=== PATIENT | male | born 1950 | race Caucasian/White ===

== ENCOUNTER 2020-08-14 09:43 | Outpatient (RCR) | payer MEDICARE, OTHER, SELFPAY ==
[2020-08-14] MEDS: COVID-19 VACC, MRNA(PFIZER)/PF 30 MCG/0.3 ML SYRINGE IM (07:42)
[2020-09-04] MEDS: COVID-19 VACC, MRNA(PFIZER)/PF 30 MCG/0.3 ML SYRINGE IM (07:37)
== END 2020-11-11 23:59 ==
LOC: IMMUN 09:43
PROVIDERS: PCP Family Medicine; Visit Provider Family Medicine
DX: Z23 Encounter for immunization (principal)
CPT/HCPCS: 0001A; 0002A; 91300

== ENCOUNTER 2024-11-04 17:28 | Emergency (ER) | payer MEDICARE, OTHER, SELFPAY ==
[2024-11-04 17:28] VITALS: BP 197/100; PULSE 70; RESP 18; TEMP 36.4; O2SAT 99; BMI 26.4
--- NOTE | 2024-11-04 17:40 | ED.VIS.FALL ---
HPI <CHADWICK Nye - Last Filed: 11/04/24 21:07> HPI - Fall History of Present Illness Chief Complaint: Fall Narrative Narrative: 74-year-old male slipped and fell this morning in his barn. He states he was running to fix a machine and slipped on a wet floor hitting his mid back on the ground. His head bumped the ground but he had no LOC. He states it knocked the wind out of him but he was able to get up and has been ambulatory and is taking Aleve for the pain. He has no pain in his chest or abdomen. No shortness of breath. No pain in his upper or lower extremities. No weakness or paresthesias. No blood thinners. No headache neck pain or nausea or vomiting. PFSH <CHADWICK Nye Last Filed: 11/04/24 21:07> PFS Medical History no medical history Home Medications ?Medication ?Instructions ?Recorded ?Last Taken ?Type hydrocodone-acetaminophen 5-325mg 1 tab PO Q6H PRN pain 3 days #12 11/04/24 Unknown Rx 5mg-325mg tabs Allergy/AdvReac Type Severity Reaction Status Date / Time No Known Allergies Allergy Verified 11/04/24 17:28 Social History Smoking Status: Never smoker ROS <CHADWICK Nye - Last Filed: 11/04/24 21:07> ROS ED ROS Narrative CVS: Negative for chest pain, syncope. Respiratory: Negative for shortness of breath. GI: Negative for nausea, vomiting. Neuro: Negative for headache, motor/sensory dysfunction. EXAM <CHADWICK Nye - Last Filed: 11/04/24 21:07> Physical Exam Narrative Exam Narrative: CONST: Patient sitting in no acute distress. EYES: Normal inspection. NECK: Normal inspection. RESP: No respiratory distress, CTAB. CVS: Regular rate and rhythm, no murmur, no gallop. Back: Normal inspection without external trauma. He has no reproducible tenderness over the spine or back but he has thoracic and lumbar pain with twisting motions or movement. SKIN: Color normal, no rash, warm, dry, intact. EXTREMITIES: Normal appearance, full range of motion upper and lower extremities, 5/5 strength, normal sensation, 2+ radial and PT pulses. NEURO: Alert and answering questions appropriately. PSYCH: Normal affect. Const Vital Signs: 11/04/24 17:28 11/04/24 17:38 11/04/24 18:38 Temperature 97.6 F L Temperature Source Oral Pulse Rate 70 87 Respiratory Rate 18 16 Respiratory Effort Normal Non-Labored Blood Pressure 197/100 H 188/84 H Blood Pressure Mean 132 118 Pulse Ox 99 98 Oxygen Delivery Method Room Air Room Air <Dr. Jhony Branch MD - Last Filed: 11/04/24 18:16> Physical Exam Const Vital Signs: 11/04/24 17:28 11/04/24 17:38 11/04/24 18:38 Temperature 97.6 F L Temperature Source Oral Pulse Rate 70 87 Respiratory Rate 18 16 Respiratory Effort Normal Non-Labored Blood Pressure 197/100 H 188/84 H Blood Pressure Mean 132 118 Pulse Ox 99 98 Oxygen Delivery Method Room Air Room Air MDM <CHADWICK Nye - Last Filed: 11/04/24 21:07> [facility] MDM Narrative Medical decision making narrative: History gathered from: Patient and spouse Differential includes back contusion versus fracture Patient had a mechanical fall injuring his back. He had a minor head injury but no LOC. No thinners. He is awake and alert. He has no external signs of trauma. He has no C-spine tenderness. I do not think he requires a scan of his head or neck. He has pain in the thoracic spine with movement although there is no reproducible pain to palpation over his spine or musculature. Upper and lower extremities are neurovascularly intact. X-rays of the thoracic lumbar spine were obtained. There is a subtle linear sclerosis at inferior L2 which could be fracture versus artifact. He is not tender over this area so it is more likely artifact. No other acute findings. He was treated with IM Toradol with improvement and was prescribed [place] as needed for home. Follow-up with PCP. I have personally performed a face to face assessment of the patient and have reviewed the JAMAL Note. I performed a substantive portion of the visit including all aspects of the following. 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 4:30 AM this morning he was running through his barn slipped and fell on the floor injuring his mid to lower back. No prior history of back surgery. No other complaints. No LOC. On no blood thinners.] Exam is [well-appearing 74-year-old male. Vital signs stable afebrile. H EENT exam pupils round react light. No signs of trauma to his face or scalp. No tenderness or hematoma. No laceration. C-spine trachea nontender tender. Back there is no reproducible back pain. There is no signs of trauma. There is no bruising or abrasion. Going down his thoracic and lumbar spines nontender. When he does movement such as standing straight up or sitting to standing he has some pain. There is no posterior rib or paravertebral soft tissue tenderness. Lungs clear to auscultation. Heart regular rhythm no murmur. Chest wall and ribs nontender. Abdomen soft nontender. Pelvic girdle intact. Moving all 4 extremities. Nontender no deformity. Normal strength and sensation. Standing without any difficulty. Neurologically he is awake and alert. Answering questions following commands.] Medical Decision Making [x-ray of his thoracic spine.] Other additions or changes: [None] Radiography Diagnostic Testing: Clinical Impression(s) from Imaging Studies Thoracic Spine X-Ray 11/04/24 17:50 IMPRESSION: 1. Subtle linear sclerosis at the inferior aspect of the L2 vertebral body, which could represent a minimally displaced fracture, though artifact could appear similar. No significant vertebral body height loss at any level. Correlate for tenderness on exam. 2. No evidence of a compression deformity involving the thoracic spine. 3. Moderate to severe multilevel degenerative changes Reading Location: [id number] Lumbar Spine X-Ray 11/04/24 18:08 IMPRESSION: 1. Subtle linear sclerosis at the inferior aspect of the L2 vertebral body, which could represent a minimally displaced fracture, though artifact could appear similar. No significant vertebral body height loss at any level. Correlate for tenderness on exam. 2. No evidence of a compression deformity involving the thoracic spine. 3. Moderate to severe multilevel degenerative changes Reading Location: [facility] <Dr. Jhony Branch MD - Last Filed: 11/04/24 18:16> [facility] MDM Narrative Medical decision making narrative: I have personally performed a face to face assessment of the patient and have reviewed the JAMAL Note. I performed a substantive portion of the visit including all aspects of the following. 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 4:30 AM this morning he was running through his barn slipped and fell on the floor injuring his mid to lower back. No prior history of back surgery. No other complaints. No LOC. On no blood thinners.] Exam is [well-appearing 74-year-old male. Vital signs stable afebrile. H EENT exam pupils round react light. No signs of trauma to his face or scalp. No tenderness or hematoma. No laceration. C-spine trachea nontender tender. Back there is no reproducible back pain. There is no signs of trauma. There is no bruising or abrasion. Going down his thoracic and lumbar spines nontender. When he does movement such as standing straight up or sitting to standing he has some pain. There is no posterior rib or paravertebral soft tissue tenderness. Lungs clear to auscultation. Heart regular rhythm no murmur. Chest wall and ribs nontender. Abdomen soft nontender. Pelvic girdle intact. Moving all 4 extremities. Nontender no deformity. Normal strength and sensation. Standing without any difficulty. Neurologically he is awake and alert. Answering questions following commands.] Medical Decision Making [x-ray of his thoracic spine.] Other additions or changes: [None] History & Record Review Discussion w/independent historian: Patient Radiography Diagnostic Testing: Clinical Impression(s) from Imaging Studies Thoracic Spine X-Ray 11/04/24 17:50 IMPRESSION: 1. Subtle linear sclerosis at the inferior aspect of the L2 vertebral body, which could represent a minimally displaced fracture, though artifact could appear similar. No significant vertebral body height loss at any level. Correlate for tenderness on exam. 2. No evidence of a compression deformity involving the thoracic spine. 3. Moderate to severe multilevel degenerative changes Reading Location: [id number] Lumbar Spine X-Ray 11/04/24 18:08 IMPRESSION: 1. Subtle linear sclerosis at the inferior aspect of the L2 vertebral body, which could represent a minimally displaced fracture, though artifact could appear similar. No significant vertebral body height loss at any level. Correlate for tenderness on exam. 2. No evidence of a compression deformity involving the thoracic spine. 3. Moderate to severe multilevel degenerative changes Reading Location: [facility] Thoracic spine x-rays, 3 views, interpreted by myself shows arthritic changes but no acute compression fracture or other acute abnormality seen. Lumbar spine x-rays 3 views again interpreted by myself again shows chronic arthritic changes but no acute fracture no obvious compression fracture. Discharge Plan Triage Chief Complaint: Fall ED Midlevel Provider: Mandy Batista ED Provider: Jhony Branch Dx/Rx/DC Orders Clinical Impression: Contusion of back wall of thorax, Fall Instructions: Bruises (Contusions) Prescriptions: New hydrocodone-acetaminophen 5-325 mg tablet 1 tab PO Q6H PRN (Reason: pain) 3 Days Qty: 12 0RF Primary Care Provider: Rigo Ceballos Referrals: Rigo Ceballos, [Primary Care Provider] - 1 Week if not improving Activity Restrictions/Additional Instructions: Your x-ray shows no sign of broken bones. I will treat this as a backup contusion with ice and ibuprofen. I also prescribed [place]. Please be aware this medication can cause nausea, sedation, and constipation. I recommend a stool softener or MiraLAX while taking it. Print Language: Swiss Disposition Disposition: Home, Self Care Discharge Date/Time: 11/04/24 18:54
[2024-11-04] MEDS: Ketorolac 15 MG/ML Vial IM (17:45)
--- NOTE | 2024-11-04 17:50 | RAD_ITS ---
PROCEDURE: THORACIC SPINE 3 VIEWS; LUMBAR SPINE 2 OR 3 VIEWS 11/04/2024 REASON FOR EXAM: PAIN TECHNIQUE: Three views of the thoracic spine; three views of the lumbar spine COMPARISON: None FINDINGS: Thoracic and lumbar vertebral body heights and alignment are maintained. There is subtle linear sclerosis along the inferior aspect of the L2 vertebral body on the lateral view. Multilevel endplate osteophyte formation with disc space narrowing and facet arthrosis throughout. Visualized lungs are clear. Aortic atherosclerosis. Bilateral hip arthroplasties. Degenerative changes of the sacroiliac joints. RAD/Thoracic Spine 3 Views IMPRESSION: 1. Subtle linear sclerosis at the inferior aspect of the L2 vertebral body, wh ich could represent a minimally displaced fracture, though artifact could appear similar. No significant vertebral body height loss at any level. Correlate for tenderness on exam. 2. No evidence of a compression deformity involving the thoracic spine. 3. Moderate to severe multilevel degenerative changes Reading Location: [facility]
--- NOTE | 2024-11-04 18:08 | RAD_ITS ---
PROCEDURE: THORACIC SPINE 3 VIEWS; LUMBAR SPINE 2 OR 3 VIEWS 11/04/2024 REASON FOR EXAM: PAIN TECHNIQUE: Three views of the thoracic spine; three views of the lumbar spine COMPARISON: None FINDINGS: Thoracic and lumbar vertebral body heights and alignment are maintained. There is subtle linear sclerosis along the inferior aspect of the L2 vertebral body on the lateral view. Multilevel endplate osteophyte formation with disc space narrowing and facet arthrosis throughout. Visualized lungs are clear. Aortic atherosclerosis. Bilateral hip arthroplasties. Degenerative changes of the sacroiliac joints. RAD/Lumbar Spine 2 or 3 Views IMPRESSION: 1. Subtle linear sclerosis at the inferior aspect of the L2 vertebral body, wh ich could represent a minimally displaced fracture, though artifact could appear similar. No significant vertebral body height loss at any level. Correlate for tenderness on exam. 2. No evidence of a compression deformity involving the thoracic spine. 3. Moderate to severe multilevel degenerative changes Reading Location: [facility]
[2024-11-04 18:38] VITALS: BP 188/84; PULSE 87; RESP 16; O2SAT 98
== END 2024-11-04 18:54 | disposition home or self-care (01) ==
PROVIDERS: Emergency Provider Emergency Medicine; PCP Family Medicine; Visit Provider Emergency Medicine
DX: S20.229A Contusion of unspecified back wall of thorax, initial encounter (principal); M54.50 Low back pain, unspecified; S09.90XA Unspecified injury of head, initial encounter; W01.198A Fall on same level from slipping, tripping and stumbling with subsequent striking against other object, initial encounter; Y93.02 Activity, running; Y92.71 Barn as the place of occurrence of the external cause
CPT/HCPCS: 72072; 72100; 96372; 99282